=== PATIENT | female | born 1940 | race Caucasian/White ===

== ENCOUNTER → 2018-02-03 | Outpatient (CLI) | payer MEDICARE ==
--- NOTE | 2018-02-04 10:11 | CT ---
EXAM DESCRIPTION: Head CLINICAL HISTORY: NORMAL PRESSURE HYDROCEPHALUS COMPARISON: None available TECHNIQUE: Noncontrast head CT was performed with routine protocol. FINDINGS: Normal staley-white matter differentiation. Ventricles and sulci are prominent consistent with age-related cerebral volume loss. No disproportionate enlargement of the ventricles to suggest obstructive or normal pressure hydrocephalus. Prominent extra-axial CSF spaces bilaterally. No high density hemorrhage, focal edema or shift of the midline. No sulcal effacement. Dystrophic-appearing calcifications are seen along the surface of the medial and posterior folia of the right cerebellar hemisphere. No underlying mass or sulcal effacement. MRI might be considered for further evaluation of the posterior fossa. Alternatively, follow-up CT in 3-6 months might be considered. Normal orbital contents. Basilar cisterns appear clear. There is calcification of the intracranial internal carotid arteries Intact calvarium with no fracture or lytic lesion. Normal aeration of tympanic cavities and mastoid air cells. No fluid levels in the paranasal sinuses. Skull base appears intact. Symmetrical internal auditory canals. Coronal and sagittal reformatted images confirm the findings. IMPRESSION: Ventricles are normal in size for age. Dystrophic calcification in the right cerebellar hemisphere appears benign. See above. This exam was performed according to our departmental dose-optimization program, which includes automated exposure control, adjustment of the mA and/or kV according to patient size and/or use of iterative reconstruction technique. Total DLP equals 859.97 mGycm. Electronically signed by: Femi Cooley MD 02/04/2018 10:09 AM CDT
== END ==
LOC: CT 15:30
PROVIDERS: ATTEND Emergency Medicine
DX: G91.2 (Idiopathic) normal pressure hydrocephalus (principal)

== ENCOUNTER → 2019-01-21 | Outpatient (CLI) | payer MEDICARE ==
--- NOTE | 2019-01-24 09:20 | CT ---
Procedure: CT LUNG SCREENING Exam Date: 01/21/2019 Ordering Provider: LUCIA BARRIOS Clinical Indication: Screening for malignant neoplasm of respiratory tract current cigarette smoker. Smokes 1 pack per day. This patient meets eligibility criteria for low-dose CT lung cancer screening. Comparison: None. Technique: Using a multislice scanner, sequential helical axial imaging was obtained in the thorax, 2.5 mm thickness, 2.5 mm separation, from the level of the thoracic inlet through the lung bases without IV contrast. A low dose protocol was utilized for BMI less than 30: BMI: 23.0. CTDI: 1.76 mGy. 120. kVp. 45 mA. DLP: 60.97 mGy-centimeters. 2D sagittal and coronal reconstructed images, 6.0 mm thickness, were obtained. This exam was performed according to our departmental dose optimization program which includes use of automated exposure control, adjustment of the mA and/or kV according to patient size and/or use of iterative reconstruction technique. Nodule measurements under 10 mm are given as mean value of 3 axes diameters. FINDINGS: Lungs and large airways: 1.5 x 0.9 cm nodule subpleural in the right apex versus pleural thickening and scarring on images 2/14-17. Similar appearing nodule in the anterior left apex measuring 1.2 x 0.9 cm on images 2/11-12. Multiple bilateral blebs similarly sized in a centrilobular distribution more prevalent in the upper lung ca than the lower. Minimal peripheral subpleural groundglass densities left upper lobe and lower lobe with volume loss in the left lower lobe and atelectasis in the base. No other abnormal nodules or masses. No focal infiltrates. Pleura and space: Negative. Mediastinum and karthik: evaluation limited by low dose technique and lack of IV contrast. Small nodes but no dominant solid masses. Heart and great vessels: Coronary artery calcifications and stents. Atherosclerotic calcifications in the brachiocephalic vessels and thoracic aorta. Chest wall, lower neck, axillae: Evaluation also limited by same factors as described above. 5 mm calcification on the periphery of the left thyroid lobe. No definite nodule. Otherwise unremarkable soft tissue. Upper abdomen: Evaluation limited by low-dose technique. Calcifications in the upper abdominal aorta and major branch vessels. 3.7 x 2.9 cm diameter in the upper abdomen aorta. Small renal stones versus atherosclerotic calcifications. Osseous structures: Evaluation limited by low dose MIP technique. Minimal depression of the superior T12 endplate. Spondylosis at other levels. No lytic or destructive lesions. IMPRESSION: 1. Irregular nodules in the subpleural bilateral apices versus apical pleural thickening. Less than 15 mm and greater than 8 mm in diameter. Emphysematous centrilobular blebs in the upper lung ca. Peripheral patchy groundglass density subpleural lateral left upper lobe and lower lobe. [facility] Best Practice recommendations: Please see below for Lung RADS category and FOLLOW-UP.* *Lung RADS category Category 4AS - Findings for which additional diagnostic testing and/or tissue sampling is recommended (5 - 15% malignancy probability). Nodules: Solid nodule(s) 8mm to less than 15mm at baseline, new 6mm to under 8mm solid nodule, or growing less than 8mm nodule. Part solid nodule measuring more than 6mm in total with a solid component 6mm to less than 8mm, or with a new or growing less than 4mm solid component. Endobronchial nodule. Follow-up: Please return for a Low Dose Chest CT in 3 months for re-evaluation. PET/CT may be used when there is an 8mm or greater solid component. 2. Subcentimeter incidental thyroid nodule/calcification. No follow-up imaging is recommended. Reference: J Am Tim Radiol. 2015 b;12(2): 143-50. 3. Lung RADS Modifier S - Clinically Significant or Potentially Clinically Significant Findings (non lung cancer): 3.7 cm abdominal aortic aneurysm. Recommend follow-up every 2 years. Reference: J Am Tim Radiol 2013;10:789-794. Electronically signed by: Manjit Villanueva MD 01/24/2019 9:18 AM CDT
== END ==
LOC: CT 15:30
PROVIDERS: ATTEND Emergency Medicine
DX: Z87.891 Personal history of nicotine dependence (principal); Z12.2 Encounter for screening for malignant neoplasm of respiratory organs; R91.8 Other nonspecific abnormal finding of lung field